=== PATIENT | female | born 1950 | race Caucasian/White ===

== ENCOUNTER → 2016-05-23 | Outpatient (CLI) | payer BC | LOC: RAD 13:26 | PROVIDERS: ATTEND Family Medicine | DX: Z12.31 Encounter for screening mammogram for malignant neoplasm of breast (principal) ==

== ENCOUNTER 2016-06-25 23:13 | Emergency (ER) | payer BC ==
[~2016-06-25] VITALS: Ht 162.6 cm; Wt 66.8 kg
[2016-06-26] MEDS ORDERED: ED- ACETAMINOHEN/CODEINE 300MG/30 MG (TYLENOL #3) 6 TABLETS/BTL PO ONE (02:25)
[2016-06-26 02:39] VITALS: BP 128/66
== END 2016-06-26 02:30 | disposition home or self-care (01) ==
LOC: ED 23:19
DX: S01.112A Laceration without foreign body of left eyelid and periocular area, initial encounter (principal); G89.11 Acute pain due to trauma; M25.571 Pain in right ankle and joints of right foot; M79.675 Pain in left toe(s); G50.1 Atypical facial pain; W10.9XXA Fall (on) (from) unspecified stairs and steps, initial encounter; Y92.099 Unspecified place in other non-institutional residence as the place of occurrence of the external cause
CPT/HCPCS: 12011; 70486; 73610; 76376; 99283; 99284

== ENCOUNTER → 2016-07-10 | Outpatient (CLI) | payer BC | LOC: RAD 16:47 → EDSTATUS 07-11 08:37 | PROVIDERS: ATTEND Family Medicine | DX: M79.671 Pain in right foot (principal); S92.001A Unspecified fracture of right calcaneus, initial encounter for closed fracture; W19.XXXA Unspecified fall, initial encounter | CPT/HCPCS: 73718 ==